=== PATIENT | female | born 1940 | race Caucasian/White ===

== ENCOUNTER → 2016-10-06 | Outpatient (CLI) | payer BC ==
[~2016-10-06] MED LIST: ATOR10 PO; BACL10TA PO; LORTA5 PO; SIMV40TA PO; SYMB160A INH
--- NOTE | 2016-10-07 12:51 | EKG ---
Date Performed: 10/06/2016 Time Performed: 09:40:32 PTAGE: 76 years EKG: Sinus rhythm NORMAL ECG PREVIOUS TRACING : 10/13/2011 15.59 Compared to prior tracing no significant change DOCTOR: Cooper Long Interpretating Date/Time 10/07/2016 12:49:57
== END ==
LOC: HCAV 09:11
PROVIDERS: ATTEND Surgery
DX: N60.99 Unspecified benign mammary dysplasia of unspecified breast (principal)
CPT/HCPCS: 93005

== ENCOUNTER → 2016-10-22 | Day surgery (SDC) | payer BC ==
[~2016-10-22] MED LIST changes: +BUPIVACAINE HCL PF 0.5% 10 ML VIAL ONE; +BUPIVACAINE HCL PF 0.5% 30 ML VIAL ONE; +CLINDAMYCIN PHOS 900 MG/6 ML VIAL ONE; +ISOSULFAN BLUE 50 MG/5 ML VIAL SQ ONE; +LACTATED RINGER'S 1000 ML INJ 1,000 ML ONE; +MIDAZOLAM HCL 2 MG/2 ML VIAL ONE; +ONDANSETRON HCL 4 MG/2 ML VIAL IV PUSH ONE; +PROPOFOL 200 MG/20 ML AMP IV ONE; +SODIUM CHLORIDE 0.9% INJ 10 ML ONE; +SODIUM CHLORIDE 0.9% SOLN 100 ML (PAB) BAG IV ONE
--- NOTE | 2016-10-22 13:22 | TN ---
cc: TAINA WOODS DATE OF SURGERY 10/22/2016 PRINCIPAL DIAGNOSIS Atypical ductal hyperplasia of the left breast. PROCEDURE PERFORMED Left breast needle-localized lumpectomy. SURGEON Taina Woods MD ANESTHESIA General via LMA device. INDICATION The patient is a 76-year-old female noted to have a left breast nodule with associated calcification. Stereotactic biopsy demonstrated atypical ductal hyperplasia and she now presents for definitive lumpectomy. FINDINGS AT THE TIME OF SURGERY No gross evidence of malignancy was identified in the left breast. Specimen mammogram did demonstrate an intact wire and the biopsy clip and nodule were within the excised tissue. PROCEDURE PERFORMED After informed consent was obtained and site verification was performed, the patient was brought to the radiology suite where she underwent needle localization of her prior left breast biopsy site. She was then brought to the major operating room where she underwent general anesthesia via an LMA device. The left breast was prepped and draped in a sterile fashion. A periareolar incision at 2 o'clock was anesthetized with 0.5% Marcaine plain and incised sharply. Further sharp dissection was performed until the wire entry point through the skin was identified and secured with a hemostat. The wire was cut off at the skin with pin cutters and a 2-0 silk transfixion suture was placed at the wire entry point into the breast tissue. Sharp and electrocautery circumferential dissection was then performed around the wire and the specimen was oriented with two sutures anteriorly, one long suture laterally, and one short suture superiorly. Hemostasis was easily obtained with electrocautery and the specimen was sent for permanent pathologic evaluation. The wound was closed using interrupted 3-0 Vicryl subcutaneous sutures and a 4-0 Monocryl subcuticular suture. Steri-Strips and sterile dressing were applied. The patient tolerated the procedure well and was extubated in the operating room and brought to recovery room in good condition. MD ASH Green/JENN /12:45 PM /1:10 PM
== END | disposition home or self-care (01) ==
LOC: ESDC 08:45
PROVIDERS: ATTEND Surgery
DX: N60.92 Unspecified benign mammary dysplasia of left breast (principal)
CPT/HCPCS: 00400; 19125; 88307; J2250; J2405; J3010; J7120; Q9968

== ENCOUNTER 2016-11-19 20:32 | Emergency (ER) | payer OTHER, BC ==
[~2016-11-19] VITALS: Ht 167.6 cm; Wt 95.2 kg
[~2016-11-19 20:32] MED LIST changes: -BACL10TA PO; -BUPIVACAINE HCL PF 0.5% 10 ML VIAL ONE; -BUPIVACAINE HCL PF 0.5% 30 ML VIAL ONE; -CLINDAMYCIN PHOS 900 MG/6 ML VIAL ONE; -ISOSULFAN BLUE 50 MG/5 ML VIAL SQ ONE; -LACTATED RINGER'S 1000 ML INJ 1,000 ML ONE; -MIDAZOLAM HCL 2 MG/2 ML VIAL ONE; -ONDANSETRON HCL 4 MG/2 ML VIAL IV PUSH ONE; -PROPOFOL 200 MG/20 ML AMP IV ONE; -SIMV40TA PO; -SODIUM CHLORIDE 0.9% INJ 10 ML ONE; -SODIUM CHLORIDE 0.9% SOLN 100 ML (PAB) BAG IV ONE; -SYMB160A INH
[2016-11-19 20:42] VITALS: BP 147/64; PULSE 78; RESP 18; TEMP 98.3
[2016-11-19] MEDS ORDERED: SIMV40TA PO (21:09)
[2016-11-19] MEDS ORDERED: SYMB160A INH (21:09)
[2016-11-19] MEDS ORDERED: ORPHENADRINE INJ 60 MG/2 ML AMP IM ONE (21:15)
[2016-11-19] MEDS ORDERED: ACETAMINOPHEN 325 MG TAB PO ONE (21:15)
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
[2016-11-19] MEDS ORDERED: BACL10TA PO (21:41)
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
== END 2016-11-19 21:56 | disposition home or self-care (01) ==
LOC: PHEFT 20:32
DX: S16.1XXA Strain of muscle, fascia and tendon at neck level, initial encounter (principal); G44.209 Tension-type headache, unspecified, not intractable; K21.9 Gastro-esophageal reflux disease without esophagitis; E78.00 Pure hypercholesterolemia, unspecified; F41.9 Anxiety disorder, unspecified; M19.90 Unspecified osteoarthritis, unspecified site; V43.52XA Car driver injured in collision with other type car in traffic accident, initial encounter
CPT/HCPCS: 70450; 72125; 96372; 99284; J2360

== ENCOUNTER 2017-03-07 08:04 | Observation (INO) | payer BC ==
[2017-03-07] VITALS (13 sets, daily range): BP systolic 127–160; BP diastolic 58–84; PULSE 72–86; RESP 17–20; TEMP 97–97.9; O2SAT 95–97
[~2017-03-07] VITALS: Ht 167.6 cm; Wt 97.9 kg
[~2017-03-07 08:04] MED LIST changes: -ATOR10 PO; +BACL10TA PO; -LORTA5 PO; +SIMV40TA PO; +SYMB160A INH
[2017-03-07] MEDS ORDERED: ASPI325T PO (08:35)
[2017-03-07] MEDS ORDERED: DIAZ2 PO (08:35)
--- NOTE | 2017-03-07 08:36 | PD ---
HPI Chief Complaint: Respiratory Symptoms Time Seen by Provider: 08:13 Travel History International Travel<30 days: No Contact w/Intl Traveler<30days: No Traveled to known affect area: No History of Present Illness HPI This 76-year-old female says that she was in the usual state of health until about 2:15 this morning. She was sleeping and she woke up with substernal chest pain. She says the pain was quite bad and was constant for about 3 hours. She was short of breath at this time. She does not recall being diaphoretic. She has not had pain like this before. She does not have a history of heart disease. She took an aspirin and the pain seemed to subside a bit. He is now having some left-sided chest pain which is worse when she takes a deep breath. She has no history of diabetes or hypertension. She has not smoked but she has been told that she has a beginning of emphysema due to secondhand smoke. She has a history of sleep apnea. She had a breast biopsy earlier this year on the left side which apparently was not malignant. She has had breast cancer on the right side many years ago that was treated with lumpectomy and radiation. She has had surgery for diverticulitis. Her father of cardiac illness. She has 2 sisters that she thinks about cardiac events PFSH Past Medical History Arthritis: Yes Blood Disorders: No Anxiety: Yes Cancer: Yes (RIGHT BREAST CA 1996, LUMPECTOMY DONE) Cardiovascular Problems: No High Cholesterol: Yes Chemotherapy: No Congestive Heart Failure: No COPD: Yes (EMPHYSEMA) Diminished Hearing: No Endocrine: No Gastrointestinal Disorders: Yes (DIVERTICULITIS) GERD: Yes Genitourinary: Yes Immune Disorder: No Kidney Stones: Yes Musculoskeletal: Yes Respiratory: Yes Radiation Therapy: Yes Sleep Apnea: Yes (USES C-PAP) PNEUMOCCOCAL Vaccine (Year): 1 ?: Not Menopausal: Yes : 3 Para: 2 Miscarriage: 1 Past Surgical History Abdominal Surgery: Yes (COLON REALIGNMENT FOR DIVERTICULITIS) Cardiac Surgery: No Ear Surgery: No Endocrine Surgery: No Eye Surgery: No Genitourinary Surgery: No Gynecologic Surgery: No Neurologic Surgery: No Oral Surgery: No Pacemaker: No Thoracic Surgery: No Other Surgery: Yes (Lumpectomy left breast/ LUMPECTOMY RIGHT 1986) Family History Family Myocardial Infarction: Yes (FATHER) Social History Alcohol Use: No Tobacco Use: No Substance Use: No Allergies-Medications (Allergen,Severity, Reaction): Coded Allergies: cephalexin (Verified Allergy, Severe, HIVES, RESP DISTRESS, 03/07/17) ibuprofen (Verified Allergy, Severe, HIVES, 03/07/17) morphine (Verified Allergy, Severe, HIVES, RESP DISTRESS, 03/07/17) niacin (Verified Allergy, Severe, HIVES, RASH, 03/07/17) penicillin G (Verified Allergy, Severe, HIVES, 03/07/17) sulfite (Verified Allergy, Severe, HIVES, 03/07/17) Reported Meds & Prescriptions Reported Meds & Active Scripts Active Baclofen 10 Mg Tab 5 Mg PO Q8HR PRN Reported Valium (Diazepam) 2 Mg Tab 2 Mg PO ONCE Aspirin 325 Mg Tab 325 Mg PO ONCE Symbicort Inh (Budesonide/Formoterol Fumarate) 160-4.5 Mcg/Act Aero 1 Puff INH Q12HR Simvastatin 40 Mg Tab 40 Mg PO HS Review of Systems General / Constitutional: No: Fever, Chills Eyes: No: Diploplia, Blurred Vision HENT: No: Headaches, Vertigo Cardiovascular: Positive: Chest Pain or Discomfort, No: Palpitations, Irregular Rhythm, Diaphoresis, Syncope Respiratory: Positive: Shortness of Breath, No: Wheezing Gastrointestinal: No: Nausea, Vomiting Genitourinary: No: Urgency, Frequency Musculoskeletal: No: Myalgias, Arthralgias Skin: No Itching, No Dryness Neurologic: No: Weakness Psychiatric: No: Anxiety Hematologic/Lymphatic: No: Easy Bruising Physical Exam Narrative GENERAL: Well-developed female SKIN: Focused skin assessment warm/dry. HEAD: Atraumatic. Normocephalic. EYES: Pupils equal and round. No scleral icterus. No injection or drainage. ENT: No nasal bleeding or discharge. Mucous membranes pink and moist. NECK: Trachea midline. No JVD. CARDIOVASCULAR: Regular rate and rhythm. No murmur appreciated. RESPIRATORY: No accessory muscle use. Clear to auscultation. Breath sounds equal bilaterally. GASTROINTESTINAL: Abdomen soft, non-tender, nondistended. Hepatic and splenic margins not palpable. MUSCULOSKELETAL: No obvious deformities. No clubbing. No cyanosis. No edema. NEUROLOGICAL: Awake and alert. No obvious cranial nerve deficits. Motor grossly within normal limits. Normal speech. PSYCHIATRIC: Appropriate mood and affect; insight and judgment normal. Data Data Last Documented VS Vital Signs Date Time Temp Pulse Resp B/P (MAP) Pulse Ox O2 Delivery O2 Flow Rate FiO2 03/07/17 09:10 81 18 150/78 (102) 96 Room Air 03/07/17 08:10 97.8 Orders Orders Electrocardiogram (03/07/17 ) Complete Blood Count With Diff (03/07/17 08:29) Comprehensive Metabolic Panel (03/07/17 08:29) Troponin I (03/07/17 08:29) B-Type Natriuretic Peptide (03/07/17 08:29) Prothrombin Time / Inr (Pt) (03/07/17 08:29) Act Partial Throm Time (Ptt) (03/07/17 08:29) Urinalysis - C+S If Indicated (03/07/17 08:29) D-Dimer (03/07/17 08:29) Magnesium (Mg) (03/07/17 08:29) Chest, Single Ap (03/07/17 08:29) Labs Laboratory Tests Test 03/07/17 08:40 White Blood Count 12.2 TH/MM3 Red Blood Count 4.58 MIL/MM3 Hemoglobin 12.9 GM/DL Hematocrit 38.6 % Mean Corpuscular Volume 84.3 FL Mean Corpuscular Hemoglobin 28.1 PG Mean Corpuscular Hemoglobin Concent 33.3 % Red Cell Distribution Width 12.9 % Platelet Count 272 TH/MM3 Mean Platelet Volume 7.2 FL Neutrophils (%) (Auto) 73.5 % Lymphocytes (%) (Auto) 17.4 % Monocytes (%) (Auto) 7.9 % Eosinophils (%) (Auto) 0.9 % Basophils (%) (Auto) 0.3 % Neutrophils # (Auto) 9.0 TH/MM3 Lymphocytes # (Auto) 2.1 TH/MM3 Monocytes # (Auto) 1.0 TH/MM3 Eosinophils # (Auto) 0.1 TH/MM3 Basophils # (Auto) 0.0 TH/MM3 CBC Comment DIFF FINAL Differential Comment Prothrombin Time 10.9 SEC Prothromb Time International Ratio 1.0 RATIO Activated Partial Thromboplast Time 27.3 SEC D-Dimer Quantitative (PE/DVT) 0.34 MG/L FEU Urine Collection Type CLEAN CATCH Urine Color STRAW Urine Turbidity CLEAR Urine pH 7.0 Urine Specific Buckner 1.003 Urine Protein NEG mg/dL Urine Glucose (UA) NEG mg/dL Urine Ketones NEG mg/dL Urine Occult Blood NEG Urine Nitrite NEG Urine Bilirubin NEG Urine Leukocyte Esterase NEG Urine Squamous Epithelial Cells 0-5 /hpf Microscopic Urinalysis Comment CULT NOT INDICATED Blood Urea Nitrogen 16 MG/DL Creatinine 0.92 MG/DL Random Glucose 102 MG/DL Total Protein 7.8 GM/DL Albumin 3.3 GM/DL Calcium Level 8.6 MG/DL Magnesium Level 2.3 MG/DL Alkaline Phosphatase 102 U/L Aspartate Amino Transf (AST/SGOT) 10 U/L Alanine Aminotransferase (ALT/SGPT) 13 U/L Total Bilirubin 0.5 MG/DL Sodium Level 141 MEQ/L Potassium Level 4.0 MEQ/L Chloride Level 104 MEQ/L Carbon Dioxide Level 27.9 MEQ/L Anion Gap 9 MEQ/L Estimat Glomerular Filtration Rate 59 ML/MIN Troponin I LESS THAN 0.02 NG/ML MDM Medical Decision Making Medical Screen Exam Complete: Yes Emergency Medical Condition: Yes Medical Record Reviewed: Yes Differential Diagnosis Differential includes acute coronary syndrome, pulmonary embolus, CHF, pneumonia Narrative Course EKG shows normal sinus rhythm. Chest x-ray shows mild platelike atelectasis at the left lung base and mild pulmonary venous congestion. D-dimer is 0.34. Troponin is less than 0.02. Hemoglobin is 12 9 with a white count of 12,000 Don Webber MD Mar 07, 2017 08:36
[2017-03-07 08:48] LABS: BASOPHIL % 0.3 % (0.0-2.0); EOSINOPHIL # 0.1 TH/MM3 (0-0.4); EOSINOPHIL % 0.9 % (0.0-4.0); HEMATOCRIT 38.6 % (35.0-46.0); HEMO FLAGS DIFF FINAL; LYMPH % 17.4 % (9.0-44.0); LYMPHOCYTE # 2.1 TH/MM3 (1.0-4.8); MEAN CELL VOLUME 84.3 FL (80.0-100.0); MEAN CORPUSCULAR HEMOGLOBIN 28.1 PG (27.0-34.0); MEAN CORPUSCULAR HGB CONC 33.3 % (32.0-36.0); MONO % 7.9 % (0.0-8.0); NEUT % 73.5 % (16.0-70.0); PLATELET COUNT 272 TH/MM3 (150-450); RED BLOOD COUNT 4.58 MIL/MM3 (4.00-5.30); RED CELL DISTRIBUTION WIDTH 12.9 % (11.6-17.2); WHITE BLOOD COUNT 12.2 TH/MM3 (4.0-11.0)
--- NOTE | 2017-03-07 08:52 | RADRPT ---
EXAM DATE/TIME: 03/07/2017 08:42 [facility] COMPARISON: No previous studies available for comparison. INDICATIONS : Chest pain, short of breath MEDICAL HISTORY : Emphysema. Carcinoma, breast. SURGICAL HISTORY : bilateral lumpectomy ENCOUNTER: Initial ACUITY: 1 day PAIN SCORE: 7/10 LOCATION: Bilateral chest FINDINGS: A single view of the chest demonstrates the lungs to be symmetrically aerated without evidence of mas s, infiltrate or effusion. There is mild platelike atelectasis in the left lung base. There is mild pulmonary venous congestion. The cardiomediastinal contours are unremarkable. Osseous structures are intact. CONCLUSION: 1. Mild platelike atelectasis left lung base. 2. Mild pulmonary venous congestion. Hunter Huntley MD on March 07, 2017 at 8:49 Board Certified Radiologist. This report was verified electronically.
[2017-03-07 08:57] LABS: BLOOD, URINE NEG (NEG); GLUCOSE,URINE NEG (NEG); KETONE, URINE NEG (NEG); NITRITE,URINE NEG (NEG)
[2017-03-07 08:58] LABS: CHLORIDE 104 MEQ/L (98-107); SODIUM (NA) 141 MEQ/L (136-145)
[2017-03-07 09:03] LABS: APTT (PATIENT) 27.3 SEC (24.3-30.1); METHOD OF COLLECTION CLEAN CATCH; PROTHROMBIN TIME - PATIENT 10.9 SEC (9.8-11.6); URINE COLOR STRAW (YELLW/STRAW)
[2017-03-07 09:04] LABS: COMMENT (UR) CULT NOT INDICATED; CULTURE IF INDICATED CULT NOT INDICATED; SQUAMOUS EPITHELIAL CELL URINE 0-5 /hpf (0-5)
[2017-03-07 09:06] LABS: ANION GAP 9 MEQ/L (5-15); BICARBONATE 27.9 MEQ/L (21.0-32.0); MAGNESIUM 2.3 MG/DL (1.5-2.5)
[2017-03-07 09:07] LABS: BLOOD UREA NITROGEN 16 MG/DL (7-18)
[2017-03-07 09:09] LABS: ALT (GPT) 13 U/L (10-53)
[2017-03-07 09:10] LABS: AST (GOT) 10 U/L (15-37); GLOMERULAR FILTRATION RATE 59 ML/MIN (>89)
[2017-03-07 09:11] LABS: TOTAL BILIRUBIN ADULT 0.5 MG/DL (0.2-1.0)
[2017-03-07 09:12] LABS: ALKALINE PHOSPHATASE 102 U/L (45-117)
[2017-03-07] MEDS ORDERED: SODIUM CHLOR 0.9% 1000 ML INJ 1,000 ML IV SCH (09:43)
[2017-03-07] MEDS ORDERED: SODIUM CHLORIDE 0.9% FLUSH 10 ML FLUSH IV FLUSH PRN (09:45)
[2017-03-07] MEDS ORDERED: BACLOFEN 10 MG TAB PO PRN (09:45)
[2017-03-07] MEDS ORDERED: ACETAMINOPHEN 325 MG TAB PO ONE (10:30)
--- NOTE | 2017-03-07 10:35 | RADRPT ---
EXAM DATE/TIME: 03/07/2017 10:05 [facility] COMPARISON: CTA CHEST W 3D RECON, October 13, 2011, 19:18. INDICATIONS : Pleuritic chest pain. RADIATION DOSE: 16.67 CTDIvol (mGy) MEDICAL HISTORY : Chronic obstructive pulmonary disease. Hypercholesterolemia. Gastroesophageal reflux disease. ca virgilio [address] 1988 SURGICAL HISTORY : Rt lumpectomy. ENCOUNTER: Initial ACUITY: 1 day PAIN SCALE: 6/10 LOCATION: Bilateral chest TECHNIQUE: Volumetric scanning of the chest was performed. Using automated exposure control and adjustment of t he mA and/or kV according to patient size, radiation dose was kept as low as reasonably achievable to obtain optimal diagnostic quality images. DICOM format image data is available electronically for r eview and comparison. Follow-up recommendations for detected pulmonary nodules are based at a minimum on nodule size and pa tient risk factors according to Fleischner Society Guidelines. FINDINGS: LUNGS: There is no consolidation or pneumothorax. No concerning pulmonary nodule is visualized. Stable 4 mm pulmonary nodule posterior left upper lung. Stable tiny 3 mm pulmonary nodule right lung base. Mild chronic interstitial changes. No acute pulmonary infiltrates. PLEURAE: There is no pleural thickening or pleural effusion. MEDIASTINUM: The heart and great vessels demonstrate no acute abnormality. There is no mediastinal or hilar lymph adenopathy. Coronary calcifications. Atherosclerotic changes. AXILLAE: Within normal limits. No lymphadenopathy. MUSCULOSKELETAL: Degenerative changes. MISCELLANEOUS: The visualized upper abdominal organs demonstrate no acute abnormality. Calcified liver granuloma. CONCLUSION: 1. No new or acute intrathoracic disease. 2. A few tiny stable bilateral pulmonary nodules unchanged from 2011. 3. Mild chronic interstitial changes. Hunter Huntley MD on March 07, 2017 at 10:30 Board Certified Radiologist. This report was verified electronically.
[2017-03-07 12:43] LABS: CREATINE KINASE 44 U/L (26-192)
[2017-03-07] MEDS ORDERED: NITROGLYCERIN 0.4 MG SL 25 TABS/BTL SL PRN (14:00)
[2017-03-07] MEDS ORDERED: NITROGLYCERIN 0.3 MG SL 100 TABS/BTL SL PRN (14:00)
--- NOTE | 2017-03-07 14:27 | HHI.HP ---
cc: Alejandro Bourgeois MD HPI Service [facility] Primary Care Physician Alejandro Bourgeois MD Admission Diagnosis CHEST PAIN Diagnoses: (1) Chest pain Diagnosis: Principal (2) Leukocytosis Diagnosis: Principal (3) HTN (hypertension) Diagnosis: Principal Chief Complaint: chest pain Travel History International Travel<30 Days: No Contact w/Intl Traveler <30 Da: No Traveled to Known Affected Are: No History of Present Illness Written by Megan Tan PA-C acting as scribe for Dr. Newton on 03/07/17 at ~ 1340. 76-year-old female with history of hyperlipidemia, "occasional" anxiety, asthma vs emphysema due to second hand smoke, sleep apnea, and breast cancer presents with complaint of chest pain. The patient states she awoke at 2 :15 AM this morning and "couldn't breathe". She states she had a horrible pain over the left chest and back. She initially describes it as pleuritic and "sharp" and then states it's a "pulsating pressure" and "throbbing". She states the pain was constant. She states when she breathes deep it is still present. She took a full dose aspirin at home this morning. She has been using her C Pap and did use it last night. She denies any medication changes. Denies any recent hospitalizations. She denies any fevers or chills or recent cold symptoms. Denies any lightheadedness, dizziness, weakness, or numbness/ tingling. Denies any associated nausea or vomiting. Denies any history of cardiac disease. Patient had an ETT done on 08/06/11 which was normal. Review of Systems Except as stated in HPI: all other systems reviewed are Neg Past Family Social History Past Medical History Hyperlipidemia Sleep apnea Occasional anxiety Asthma v emphysema from secondhand smoke Breast cancer Diverticulitis h/o GERD, no longer has issues with this Nephrolithiasis Past Surgical History Colon realignment for diverticulitis Bilateral shoulder surgery Lumpectomy right breast, malignant Lumpectomy left breast, benign Reported Medications Reported Meds & Active Scripts Active Baclofen 10 Mg Tab 5 Mg PO Q8HR PRN Reported Valium (Diazepam) 2 Mg Tab 2 Mg PO ONCE Aspirin 325 Mg Tab 325 Mg PO ONCE Symbicort Inh (Budesonide/Formoterol Fumarate) 160-4.5 Mcg/Act Aero 1 Puff INH Q12HR Simvastatin 40 Mg Tab 40 Mg PO HS Allergies: Coded Allergies: cephalexin (Verified Allergy, Severe, HIVES, RESP DISTRESS, 03/07/17) ibuprofen (Verified Allergy, Severe, HIVES, 03/07/17) morphine (Verified Allergy, Severe, HIVES, RESP DISTRESS, 03/07/17) niacin (Verified Allergy, Severe, HIVES, RASH, 03/07/17) penicillin G (Verified Allergy, Severe, HIVES, 03/07/17) sulfite (Verified Allergy, Severe, HIVES, 03/07/17) Family History Father: at age 69 from [place]. Mother: Lived to age 84; hypertension and stroke Social History Denies alcohol use, cigarette smoking, or illicit drug use. Physical Exam Vital Signs Vital Signs Date Time Temp Pulse Resp B/P (MAP) Pulse Ox O2 Delivery O2 Flow Rate FiO2 03/07/17 11:50 97 03/07/17 11:15 97.0 77 18 149/84 (105) 95 03/07/17 10:55 77 18 160/71 (100) 97 03/07/17 10:16 77 18 160/71 (100) 95 Room Air 03/07/17 09:10 81 18 150/78 (102) 96 Room Air 03/07/17 08:32 86 20 153/80 (104) 97 Room Air 155/58 (90) 03/07/17 08:18 20 97 Room Air 03/07/17 08:10 97.8 80 20 157/70 (99) 96 Physical Exam GENERAL: This is a well-nourished, well-developed patient, in no apparent distress. SKIN: No rashes, ecchymoses or lesions. Warm and dry. HEAD: Atraumatic. Normocephalic. EYES: No scleral icterus. No injection or drainage. NECK: Trachea midline. CHEST: No reproducible chest wall tenderness. CARDIOVASCULAR: Regular rate and rhythm without murmurs, gallops, or rubs. RESPIRATORY: Clear to auscultation. Breath sounds equal bilaterally. No wheezes , rales, or rhonchi. GASTROINTESTINAL: Abdomen soft, non-tender, nondistended. No guarding. MUSCULOSKELETAL: No lower extremity edema bilaterally. NEUROLOGICAL: Awake and alert. Motor grossly within normal limits. Normal speech. PSYCHIATRIC: Normal mood and affect. Laboratory Laboratory Tests Test 03/07/17 08:40 03/07/17 11:50 White Blood Count 12.2 Red Blood Count 4.58 Hemoglobin 12.9 Hematocrit 38.6 Mean Corpuscular Volume 84.3 Mean Corpuscular Hemoglobin 28.1 Mean Corpuscular Hemoglobin Concent 33.3 Red Cell Distribution Width 12.9 Platelet Count 272 Mean Platelet Volume 7.2 Neutrophils (%) (Auto) 73.5 Lymphocytes (%) (Auto) 17.4 Monocytes (%) (Auto) 7.9 Eosinophils (%) (Auto) 0.9 Basophils (%) (Auto) 0.3 Neutrophils # (Auto) 9.0 Lymphocytes # (Auto) 2.1 Monocytes # (Auto) 1.0 Eosinophils # (Auto) 0.1 Basophils # (Auto) 0.0 CBC Comment DIFF FINAL Differential Comment Prothrombin Time 10.9 Prothromb Time International Ratio 1.0 Activated Partial Thromboplast Time 27.3 D-Dimer Quantitative (PE/DVT) 0.34 Urine Collection Type CLEAN CATCH Urine Color STRAW Urine Turbidity CLEAR Urine pH 7.0 Urine Specific [place] 1.003 Urine Protein NEG Urine Glucose (UA) NEG Urine Ketones NEG Urine Occult Blood NEG Urine Nitrite NEG Urine Bilirubin NEG Urine Leukocyte Esterase NEG Urine Squamous Epithelial Cells 0-5 Microscopic Urinalysis Comment CULT NOT INDICATED Blood Urea Nitrogen 16 Creatinine 0.92 Random Glucose 102 Total Protein 7.8 Albumin 3.3 Calcium Level 8.6 Magnesium Level 2.3 Alkaline Phosphatase 102 Aspartate Amino Transf (AST/SGOT) 10 Alanine Aminotransferase (ALT/SGPT) 13 Total Bilirubin 0.5 Sodium Level 141 Potassium Level 4.0 Chloride Level 104 Carbon Dioxide Level 27.9 Anion Gap 9 Estimat Glomerular Filtration Rate 59 Troponin I LESS THAN 0.02 LESS THAN 0.02 B-Type Natriuretic Peptide 11 Total Creatine Kinase 44 Result Diagram: 03/07/17 0840 03/07/17 0840 Imaging Last Impressions Chest X-Ray 03/07/17 0829 Signed Impressions: Service Date/Time: Tuesday, March 07, 2017 08:42 - CONCLUSION: 1. Mild platelike atelectasis left lung base. 2. Mild pulmonary venous congestion. Hunter Huntley MD Chest CT 03/07/17 0000 Signed Impressions: Service Date/Time: Tuesday, March 07, 2017 10:05 - CONCLUSION: 1. No new or acute intrathoracic disease. 2. A few tiny stable bilateral pulmonary nodules unchanged from 2012. 3. Mild chronic interstitial changes. Hunter Huntley MD Caprini VTE Risk Assessment Caprini VTE Risk Assessment: Mod/High Risk (score >= 2) Caprini Risk Assessment Model Point Value = 1 Point Value = 2 Point Value = 3 Point Value = 5 Age 41-60 Minor surgery BMI > 25 kg/m2 Swollen legs Varicose veins or History of unexplained or recurrent spontaneous Oral contraceptives or hormone replacement Sepsis (< 1 month) Serious lung disease, including pneumonia (< 1 month) Abnormal pulmonary function Acute myocardial infarction Congestive heart failure (< 1 month) History of inflammatory bowel disease Medical patient at bed rest Age 61-74 Arthroscopic surgery Major open surgery (> 45 min) Laparoscopic surgery (> 45 min) Malignancy Confined to bed (> 72 hours) Immobilizing plaster cast Central venous access Age >= 75 History of VTE Family history of VTE Factor V Leiden Prothrombin [id number] Lupus anticoagulant Anticardiolipin antibodies Elevated serum homocysteine Heparin-induced thrombocytopenia Other congenital or acquired thrombophilia Stroke (< 1 month) Elective arthroplasty Hip, pelvis, or leg fracture Acute spinal cord injury (< 1 month) Prophylaxis Regimen Total Risk Factor Score Risk Level Prophylaxis Regimen 0-1 Low Early ambulation 2 Moderate Order ONE of the following: *Sequential Compression Device (SCD) *Heparin 5000 units SQ BID 3-4 Higher Order ONE of the following medications: *Heparin 5000 units SQ TID *Enoxaparin/Lovenox 40 mg SQ daily (WT < 150 kg, CrCl > 30 mL/min) *Enoxaparin/Lovenox 30 mg SQ daily (WT < 150 kg, CrCl > 10-29 mL/min) *Enoxaparin/Lovenox 30 mg SQ BID (WT < 150 kg, CrCl > 30 mL/min) AND/OR *Sequential Compression Device (SCD) 5 or more Highest Order ONE of the following medications: *Heparin 5000 units SQ TID (Preferred with Epidurals) *Enoxaparin/Lovenox 40 mg SQ daily (WT < 150 kg, CrCl > 30 mL/min) *Enoxaparin/Lovenox 30 mg SQ daily (WT < 150 kg, CrCl > 10-29 mL/min) *Enoxaparin/Lovenox 30 mg SQ BID (WT < 150 kg, CrCl > 30 mL/min) AND *Sequential Compression Device (SCD) Assessment and Plan Assessment and Plan 76-year-old female with: Chest pain: Appears to be mostly pleuritic, but patient also describes it as a pressure. EKG personally interpreted with normal sinus rhythm, borderline LAD, and no evidence of ischemia. Chest x-ray with mild platelike atelectasis at the left lung base and mild pulmonary venous congestion, but CT of the chest personally reviewed with no acute abnormality. D-dimer negative. Troponin 2 less than 0.02. CK normal. -Serial EKGs and enzymes -Telemetry -Nitro prn chest pain -Daily aspirin -NPO after midnight. Patient will undergo a stress test in the morning once ACS ruled out. Will discuss with patient if she is able to perform treadmill provided remaining EKGs are without ischemic changes. She states she has no significant arthritis and did a treadmill 5 years ago. HTN: Patient does not report a history of hypertension but BP 157/70 on arrival and has persisted. IV fluids were discontinued. Will monitor. If BP remains elevated will order medication. Leukocytosis: White blood cell count 12.2. Likely stress reaction. Chronic medical conditions: Hyperlipidemia, asthma. Continue home medications as indicated. DVT prophylaxis: SCDs. Code Status FULL CODE She would like her [id number] to make healthcare decisions if necessary although has not yet officially designated her as a healthcare surrogate. Discussed Condition With ED physician, patient This note was transcribed by scribe [Megan Tan PA-C]. I, Dr. Lyle Newton personally performed the history, physical exam, and medical decision making; and confirmed the accuracy of the information in the transcribed note. Authenticated by Dr. Lyle Newton on 03/07/17 at 16:27. Megan Tan Mar 07, 2017 14:27 Lyle Newton MD Mar 07, 2017 16:27
[2017-03-07 14:40] LABS: CREATINE KINASE 42 U/L (26-192)
--- NOTE | 2017-03-07 15:27 | EKG ---
Date Performed: 03/07/2017 Time Performed: 08:20:08 PTAGE: 76 years EKG: Sinus rhythm NORMAL ECG PREVIOUS TRACING : 10/06/2016 09.40 Compared to prior tracing no significant change DOCTOR: Marky Cedeño Interpretating Date/Time 03/07/2017 15:26:32
[2017-03-07] MEDS: ACETAMINOPHEN 325 MG TAB PO PRN ×2 (16:34→20:35)
--- NOTE | 2017-03-07 17:39 | ECHRPT ---
Indication: CHEST PAIN CONCLUSIONS Normal left ventricular size and wall thickness. The left ventricular systolic function is normal wi th an estimated ejection fraction in the range of 60-65%. Left ventricular diastolic function parameters a re normal. Mild thickening of the mitral valve leaflets. Trace mitral valve regurgitation. BP: 150 / 78 HR: 102 Rhythm: Sinus MEASUREMENTS (Male / Female) Normal Values Technical Quality:Good 2D ECHO LV Diastolic Diameter PLAX 4.6 cm 4.2 - 5.9 / 3.9 - 5.3 cm LV Systolic Diameter PLAX 2.8 cm IVS Diastolic Thickness 1.0 cm 0.6 - 1.0 / 0.6 - 0.9 cm LVPW Diastolic Thickness 1.1 cm 0.6 - 1.0 / 0.6 - 0.9 cm LV Relative Wall Thickness 0.5 RV Internal Dim ED PLAX 2.6 cm LVOT Diameter 2.0 cm LA Systolic Diameter LX 3.3 cm 3.0 - 4.0 / 2.7 - 3.8 cm M-MODE Aortic Root Diameter MM 2.8 cm AV Cusp Separation MM 1.7 cm DOPPLER AV Peak Velocity 171.0 cm/s AV Peak Gradient 11.7 mmHg LVOT Peak Velocity 114.0 cm/s LVOT Peak Gradient 5.2 mmHg AV Area Cont Eq pk 2.1 cm MV Area PHT 3.8 cm Mitral E Point Velocity 81.9 cm/s Mitral A Point Velocity 101.0 cm/s Mitral E to A Ratio 0.8 LV E' Lateral Velocity 7.6 cm/s Mitral E to LV E' Lateral Ratio 10.8 LV E' Septal Velocity 6.1 cm/s Mitral E to LV E' Septal Ratio 13.3 PV Peak Velocity 92.3 cm/s PV Peak Gradient 3.4 mmHg FINDINGS LEFT VENTRICLE Normal left ventricular size and wall thickness. The left ventricular systolic function is normal wi th an estimated ejection fraction in the range of 60-65%. Left ventricular diastolic function parameters a re normal. RIGHT VENTRICLE Normal right ventricular size and systolic function. LEFT ATRIUM The left atrial size is normal. RIGHT ATRIUM The right atrial size is normal. ATRIAL SEPTUM Normal atrial septal thickness without atrial level shunting by limited color doppler interrogation. AORTA The aortic root and proximal ascending aorta are normal in size on limited imaging. MITRAL VALVE Mild thickening of the mitral valve leaflets. Trace mitral valve regurgitation. AORTIC VALVE Trileaflet aortic valve. No aortic valve stenosis or regurgitation. TRICUSPID VALVE Structurally normal tricuspid valve. No tricuspid valve stenosis or regurgitation. PULMONARY VALVE The pulmonary valve is not well visualized. VESSELS The inferior vena cava is normal in size. PERICARDIUM No pericardial effusion. Chapito Rene MD, FACC, [facility] (Electronically Signed) Final Date:07 March 2017 17:38
[2017-03-07] MEDS: SODIUM CHLORIDE 0.9% FLUSH 10 ML FLUSH IV FLUSH SCH (20:35)
[2017-03-07] MEDS: BUDESONIDE-FORMOTEROL 160/4.5 MCG INHALER INH SCH (20:35)
[2017-03-07] MEDS ORDERED: PRAVASTATIN SOD 80 MG TAB PO SCH (21:00)
[2017-03-08] VITALS: BP 110/54; PULSE 72; RESP 20; TEMP 96.7; O2SAT 95
[2017-03-08 04:00] VITALS: BP 128/55; PULSE 71; RESP 18; TEMP 96.6; O2SAT 94
[2017-03-08 07:20] VITALS: PULSE 72
[2017-03-08] MEDS: BUDESONIDE-FORMOTEROL 160/4.5 MCG INHALER INH SCH (07:53)
[2017-03-08] MEDS: SODIUM CHLORIDE 0.9% FLUSH 10 ML FLUSH IV FLUSH SCH (07:55)
[2017-03-08 08:00] VITALS: BP 119/68; PULSE 72; RESP 18; TEMP 97; O2SAT 93; O2SAT 97
--- NOTE | 2017-03-08 08:43 | HHI.PR ---
Subjective Remarks Follow up for chest pain. Patient initially denies any chest pain but then admits to still having pain with deep breaths but it is improved. Denies any shortness of breath. Denies any dizziness. Objective Vitals Vital Signs Date Time Temp Pulse Resp B/P (MAP) Pulse Ox O2 Delivery O2 Flow Rate FiO2 03/08/17 08:00 97.0 72 18 119/68 (85) 97 03/08/17 04:00 96.6 71 18 128/55 (79) 94 03/08/17 00:00 96.7 72 20 110/54 (72) 95 03/07/17 23:00 74 03/07/17 20:45 96 21 03/07/17 20:00 97.9 75 20 127/66 (86) 96 03/07/17 16:15 72 03/07/17 16:00 97.2 78 17 143/80 (101) 95 03/07/17 11:50 97 03/07/17 11:15 97.0 77 18 149/84 (105) 95 03/07/17 10:55 77 18 160/71 (100) 97 03/07/17 10:30 74 03/07/17 10:16 77 18 160/71 (100) 95 Room Air 03/07/17 09:10 81 18 150/78 (102) 96 Room Air 03/07/17 08:32 86 20 153/80 (104) 97 Room Air 155/58 (90) I/O 03/07/17 03/07/17 03/07/17 03/08/17 03/08/17 03/08/17 07:00 15:00 23:00 07:00 15:00 23:00 Intake Total 165 ml 0 ml 0 ml Balance 165 ml 0 ml 0 ml Intake Oral 0 ml 0 ml IV Total 165 ml # Voids 3 2 # Bowel Movements 0 0 Result Diagram: 03/07/1783903/07/1740 Objective Remarks GENERAL: Well-nourished, well-developed patient in no apparent distress sitting in recliner SKIN: Warm and dry. CARDIOVASCULAR: Regular rate and rhythm. No murmurs. RESPIRATORY: No accessory muscle use. Clear to auscultation. Breath sounds equal bilaterally. GASTROINTESTINAL: Abdomen soft, non-tender, nondistended. MUSCULOSKELETAL: No pretibial edema bilaterally. NEUROLOGICAL: Awake and alert. Normal speech. PSYCHIATRIC: Appropriate mood and affect; insight and judgment normal. Urinary Catheter: No Vascular Central Line Catheter: No A/P Problem List: (1) Chest pain ICD Code: R07.9 - Chest pain, unspecified (2) Leukocytosis ICD Code: D72.829 - Elevated white blood cell count, unspecified (3) HTN (hypertension) ICD Code: I10 - Essential (primary) hypertension Assessment and Plan 76-year-old female with: Chest pain: Appears to be mostly pleuritic, but patient also describes it as a pressure. Chest x-ray with mild platelike atelectasis at the left lung base and mild pulmonary venous congestion, but CT of the chest with no acute abnormality. D-dimer negative. Troponin 3 less than 0.02. CK normal. -EKGs personally interpreted with normal sinus rhythm and borderline LAD. EKGs were reviewed again today. There is septal T wave inversion noted on EKG #1 which becomes biphasic on subsequent EKGs. The patient had similar inversion in V2 on EKG in September of this year, but T waves are clearly normal and upright on EKGs prior to treadmill in 2011. For this reason as well as possible physical incapability to complete treadmill, Lexiscan will be performed. Patient has undergone a nuclear stress test before in 2001. -Echo with normal left ventricular function, EF 60-65%. Left ventricular diastolic function parameters are normal. Mild thickening of the mitral valve leaflets. Trace mitral valve regurgitation. -Telemetry -Nitro prn chest pain -Daily aspirin HTN: Patient does not report a history of hypertension but BP 157/70 on arrival and persisted yesterday. IV fluids were discontinued. BP has returned to normal today without medication. Leukocytosis: White blood cell count 12.2. Likely stress reaction. Chronic medical conditions: Hyperlipidemia, asthma. Continue home medications as indicated. DVT prophylaxis: SCDs. Myocardial perfusion scan normal. Telemetry reviewed without significant events. Likely has costochondritis. Patient advised to take Tylenol OTC for pain and advised against wrapping the chest. Advised to use IS. Discharge disposition: Home in stable condition Diet: Heart healthy Activity: Avoid strenuous activity and lifting and bending. Medications: Continue home medications. Follow-up: Dr. Bourgeois, PCP, 1 week. Advised to return to ED for worsening chest pain or SOB. Attending Statement The exam, history, and the medical decision-making described in the above note were completed with the assistance of the mid-level provider. I reviewed and agree with the findings presented. I attest that I had a [id number] encounter with the patient on the same day, and personally performed and documented my assessment and findings in the medical record. Patient seen this morning around 10 AM. Says she is feeling better. Reports chest pain much improved. Feels like going home. Reviewed the cardial perfusion low risk. Suspect costochondritis. D-dimer negative on admission, CT chest with no acute findings.. Problem Qualifiers (1) Chest pain: Qualified Codes: R07.1 - Chest pain on breathing Megan Tan Mar 08, 2017 08:43 Lyle Newton MD Mar 08, 2017 14:56
[2017-03-08] MEDS ORDERED: ASPIRIN EC 81 MG TABEC PO SCH (09:00)
[2017-03-08] MEDS ORDERED: REGADENOSON INJ 0.4 MG/5 ML SYR IV ONE (12:33)
[2017-03-08 13:42] LABS: AUTOMATED NEUTROPHIL # 6.9 TH/MM3 (1.8-7.7); BASOPHIL % 0.3 % (0.0-2.0); EOSINOPHIL # 0.1 TH/MM3 (0-0.4); EOSINOPHIL % 0.9 % (0.0-4.0); HEMATOCRIT 41.8 % (35.0-46.0); HEMO FLAGS DIFF FINAL; LYMPH % 18.2 % (9.0-44.0); LYMPHOCYTE # 1.7 TH/MM3 (1.0-4.8); MEAN CELL VOLUME 84.8 FL (80.0-100.0); MEAN CORPUSCULAR HEMOGLOBIN 27.6 PG (27.0-34.0); MEAN CORPUSCULAR HGB CONC 32.6 % (32.0-36.0); NEUT % 73.6 % (16.0-70.0); PLATELET COUNT 268 TH/MM3 (150-450); RED BLOOD COUNT 4.94 MIL/MM3 (4.00-5.30); RED CELL DISTRIBUTION WIDTH 12.7 % (11.6-17.2); WHITE BLOOD COUNT 9.4 TH/MM3 (4.0-11.0)
--- NOTE | 2017-03-08 13:48 | RADRPT ---
EXAM DATE/TIME: 03/08/2017 11:29 [facility] COMPARISON: No previous studies available for comparison. INDICATIONS : Chest pain. Abnormal EKG. DOSE: 27.3 mCi Tc99m Myoview at stress. 8.6 mCi Tc99m Myoview at rest. 0.4 mg Lexiscan STRESS SYMPTOMS: Headache, dyspnea and abdomen cramps. EJECTION FRACTION: > 70% MEDICAL HISTORY : Carcinoma, breast. Chronic obstructive pulmonary disease. Hypertension. SURGICAL HISTORY : Rotator cuff, right. Rotator cuff, left. ENCOUNTER: Initial ACUITY: 1 day PAIN SCALE: 0/10 LOCATION: chest TECHNIQUE: The patient underwent pharmacologic stress with infusion of prescribed dose. Continuous ECG tracing was monitored during stress. Gated SPECT imaging was performed after stress and conventional SPECT i maging was performed at rest. The examination was performed on a SPECT/CT scanner, both attenuation and non-corrected datasets were reviewed. FINDINGS: DISTRIBUTION: The maximum perfused segment at stress is in the anterior wall. PERFUSION STUDY: The pattern of perfusion at stress is within normal limits. GATED STUDY: There is intact wall motion and thickening without hypokinetic or dyskinetic segments. CONCLUSION: Unremarkable myocardial perfusion examination. RISK CATEGORY: Low Hunter Huntley MD on March 08, 2017 at 13:46 Board Certified Radiologist. This report was verified electronically.
--- NOTE | 2017-03-08 14:14 | HHI.DCPOC ---
Discharge Care Plan Diagnosis: (1) Chest pain (2) Leukocytosis (3) HTN (hypertension) Your Health Problems Are: Chest Pain Goals to Promote Your Health * To prevent worsening of your condition and complications * To maintain your health at the optimal level Directions to Meet Your Goals Take your medications as prescribed Follow your dietary instruction Follow activity as directed Keep your appointments as scheduled Take your immunizations and boosters as scheduled If your symptoms worsen call your PCP, if no PCP go to Urgent Care Center or Emergency Room Smoking is Dangerous to Your Health. Avoid second hand smoke Call the 24-hour hour crisis hotline for domestic abuse at Megan Tan Mar 08, 2017 14:14
--- NOTE | 2017-03-09 11:02 | EKG ---
Date Performed: 03/07/2017 Time Performed: 13:50:13 PTAGE: 76 years EKG: Sinus rhythm BORDERLINE LEFT AXIS DEVIATION BORDERLINE ECG PREVIOUS TRACING : 03/07/2017 11.34 Since previous tracing, no significant change noted DOCTOR: Milan Hahn Interpretating Date/Time 03/09/2017 11:01:25
--- NOTE | 2017-03-09 11:04 | EKG ---
Date Performed: 03/07/2017 Time Performed: 11:34:52 PTAGE: 76 years EKG: Sinus rhythm NORMAL ECG PREVIOUS TRACING : 03/07/2017 08.20 Since previous tracing, no significant change noted DOCTOR: Milan Hahn Interpretating Date/Time 03/09/2017 11:02:56
--- NOTE | 2017-03-09 12:06 | TR ---
Date Performed: 03/08/2017 Time Performed: 12:09:36 DOCTOR: Milan Hahn DRUG LIST: CLINICAL HISTORY: REASON FOR TEST: REASON FOR ENDING: OBSERVATION: CONCLUSION: Lexiscan stress test was performed under standard four minute protocol. Radionuclid e was injected one minute prior to ending the test. No electrocardiographic abormalities were present to suggest ischemia. Nuclear imaging and interpretation are pending. COMMENTS:
== END 2017-03-08 15:33 | disposition home or self-care (01) ==
LOC: PHED 08:04 → PHEDA 09:46 → PH3A 11:00
PROVIDERS: ADMIT Internal Medicine; ATTEND Internal Medicine
DX: R07.89 Other chest pain (principal); I10 Essential (primary) hypertension; R94.31 Abnormal electrocardiogram [ECG] [EKG]; D72.829 Elevated white blood cell count, unspecified; E78.00 Pure hypercholesterolemia, unspecified; Z85.3 Personal history of malignant neoplasm of breast
CPT/HCPCS: 71010; 71250; 78452; 80053; 81001; 82550; 83735; 83880; 84484; 85025; 85379; 85610; 85730; 93005; 93017; 93306; 94150; 94667; 94668; 96360; 99285; A9502; G0378; J2785; J7030